=== PATIENT | male | born 1980 ===

== ENCOUNTER 2017-03-29 12:04 | Emergency (ER) | payer OTHER, SELFPAY ==
[2017-03-29 12:27] VITALS: BP 113/75; PULSE 73; RESP 18; TEMP 98.5; O2SAT 100
[2017-03-29] MEDS ORDERED: Oxycodone/Acetaminophen 5/325 mg Tab PO STA (12:32)
[2017-03-29] MEDS ORDERED: Lidocaine 5% Patch TD STA (12:32)
[2017-03-29] MEDS ORDERED: Oxycodone/Acetaminophen 5/325 mg Tab ONE (12:49)
[2017-03-29] MEDS ORDERED: Lidocaine 5% Patch TD ONE (12:51)
--- NOTE | 2017-03-29 13:10 | ED PDOC ---
HPI: General Adult Time Seen by Provider: 03/29/17 12:29 Chief Complaint (Nursing): Back Pain Chief Complaint (Provider): Back Pain History Per: Patient History/Exam Limitations: no limitations Onset/Duration Of Symptoms: Days Current Symptoms Are (Timing): Still Present Additional Complaint(s): 36 year old male presents to the emergency department with a complaint of a left buttock and lower back pain after he feel and landed on the left side on a sitting position about 1 month ago. 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 States medications did not help with pain. Patient took Tylenol yesterday. Past Medical History Reviewed: Historical Data, Nursing Documentation, Vital Signs Vital Signs: Last Vital Signs Temp 98.5 F 03/29/17 12:21 Pulse 73 03/29/17 12:21 Resp 18 03/29/17 12:21 BP 113/75 03/29/17 12:21 Pulse Ox 100 03/29/17 14:59 - Medical History PMH: No Chronic Diseases - Surgical History Surgical History: Tonsillectomy (age 6) - Family History Family History: States: No Known Family Hx - Home Medications Home Medications: Ambulatory Orders Medication Instructions Recorded Cyclobenzaprine [Cyclobenzaprine 10 mg PO Q8 PRN #30 tab 03/29/17 HCl] Naproxen [Naprosyn] 500 mg PO BID PRN #30 tab 03/29/17 - Allergies Allergies/Adverse Reactions: Allergies Allergy/AdvReac Type Severity Reaction Status Date / Time No Known Allergies Allergy Verified 03/29/17 12:21 Review of Systems ROS Statement: Except As Marked, All Systems Reviewed And Found Negative (As per HPI, otherwise negative) Musculoskeletal: Positive for: Back Pain Physical Exam - Reviewed Nursing Documentation Reviewed: Yes Vital Signs Reviewed: Yes - Physical Exam Appears: Positive for: Non-toxic, In Acute Distress (Moderate painful distress) Head Exam: Positive for: NORMAL INSPECTION Skin: Positive for: Normal Color, Warm, Dry. Negative for: Rash Cardiovascular/Chest: Positive for: Regular Rate, Rhythm. Negative for: Murmur Respiratory: Positive for: Normal Breath Sounds. Negative for: Accessory Muscle Use, Respiratory Distress Gastrointestinal/Abdominal: Positive for: Normal Exam, Soft. Negative for: Tenderness Back: Positive for: Vertebral Tenderness (Lumbar region), Other (Left buttock and left paralumbar tenderness) Neurologic/Psych: Positive for: Alert, group billing coordinator II-XII (intact), Oriented (x3), Cerebellar Tests (normal). Negative for: Motor/Sensory Deficits, Facial Droop - ECG O2 Sat by Pulse Oximetry: 100 (RA) Pulse Ox Interpretation: Normal Medical Decision Making Medical Decision Making: Time: 1232 Initial impression: Back pain Initial plan: --Valium 10 mg PO --Toradol 30 mg IM --Lidocaine 1 TD --2 tablets of Percocet 5/325 mg PO --Lumbar Spine CT --Reevaluation Time: 1344 --Lumbar CT FINDINGS: VERTEBRAE: Unremarkable. No fracture. Normal alignment. DISCS/SPINAL CANAL/NEURAL FORAMINA: L1-2: Unremarkable. L2-3: Unremarkable. L3-4: Unremarkable. L4-5: Mild disc bulge without significant central canal or neuroforaminal stenosis. L5-S1: Unremarkable. PARASPINAL SOFT TISSUES: Unremarkable. OTHER FINDINGS: None. IMPRESSION: No acute fracture. Mild disc bulge at L4-5 without significant central canal or neural foraminal stenosis. Time: 1458 --Patient is medically stable for discharge and will be given Rx for Cyclobenzaprine HCl 10 mg and Naprosyn 500 mg. Advised to follow up with referred clinics. Clinical Impression: Sciatica Scribe Attestation: Documented by Marie Tavares, acting as a scribe for Michelet Dominguez PA-C Provider Scribe Attestation: All medical record entries made by the Scribe were at my direction and personally dictated by me. I have reviewed the chart and agree that the record accurately reflects my personal performance of the history, physical exam, medical decision making, and the department course for this patient. I have also personally directed, reviewed, and agree with the discharge instructions and disposition. Disposition - Clinical Impression Clinical Impression: Sciatica - Patient ED Disposition Is Patient to be Admitted: No - Disposition Referrals: [facility] [Outside] [facility] [Outside] Disposition: Routine/Home Disposition Time: 14:58 Condition: STABLE Prescriptions: Cyclobenzaprine [Cyclobenzaprine HCl] 10 mg PO Q8 PRN #30 tab PRN Reason: Muscle Spasm Naproxen [Naprosyn] 500 mg PO BID PRN #30 tab PRN Reason: Pain Instructions: Sciatica (ED) Forms: [facility] (Spanish)
--- NOTE | 2017-03-29 14:34 | CT ---
PROCEDURE: CT Lumbar Spine without contrast HISTORY: back pain s/p fall COMPARISON: None. TECHNIQUE: Axial computed tomography images were obtained of the lumbar spine without the use of intravenous contrast. Coronal and sagittal reformatted images were created and reviewed. Radiation dose: Total exam DLP = 1723.8 mGy-cm. This CT exam was performed using one or more of the following dose reduction techniques: Automated exposure control, adjustment of the mA and/or kV according to patient size, and/or use of iterative reconstruction technique. FINDINGS: VERTEBRAE: Unremarkable. No fracture. Normal alignment. DISCS/SPINAL CANAL/NEURAL FORAMINA: L1-2: Unremarkable. L2-3: Unremarkable. L3-4: Unremarkable. L4-5: Mild disc bulge without significant central canal or neuroforaminal stenosis. L5-S1: Unremarkable. PARASPINAL SOFT TISSUES: Unremarkable. OTHER FINDINGS: None. IMPRESSION: No acute fracture. Mild disc bulge at L4-5 without significant central canal or neural foraminal stenosis.
== END 2017-03-29 15:16 | disposition home or self-care (01) ==
LOC: H.ER 12:04
DX: M54.32 Sciatica, left side (principal)
CPT/HCPCS: 72131; 96372; 99283; J1885